=== PATIENT | male | born 1980 | race African-American/Black ===

== ENCOUNTER 2022-06-07 01:08 | Emergency (ER) | payer MEDICAID, SELFPAY ==
[2022-06-07] MEDS ORDERED: Ibuprofen 200 MG TAB ONE (02:18)
== END 2022-06-07 02:29 | disposition home or self-care (01) ==
LOC: ERS 01:08
DX: S50.811A Abrasion of right forearm, initial encounter (principal); F17.210 Nicotine dependence, cigarettes, uncomplicated; W26.8XXA Contact with other sharp object(s), not elsewhere classified, initial encounter